=== PATIENT | male | born 1990 | race Two or more races ===

== ENCOUNTER 2023-04-20 03:20 | Emergency (ER) | payer OTHER ==
[~2023-04-20] VITALS: Ht 180.3 cm; Wt 74.4 kg
[2023-04-20 03:29] VITALS: TEMP 98
[2023-04-20 03:39] VITALS: BP 123/68; O2SAT 98
== END 2023-04-20 03:57 ==
LOC: ER 03:24
DX: R07.89 Other chest pain (principal); F41.9 Anxiety disorder, unspecified